=== PATIENT | male | born 1985 | race Caucasian/White ===

== ENCOUNTER 2023-02-22 15:40 | Emergency (ER) | payer OTHER, SELFPAY ==
[2023-02-22 15:53] VITALS: BP 139/91; PULSE 79; RESP 16; TEMP 36.2; O2SAT 98; BMI 23.1
--- NOTE | 2023-02-22 15:54 | ED.GENADULT ---
HPI - General Adult General Time Seen by Provider: 15:54 Date Seen: 02/22/23 Chief complaint: Abdominal Pain Stated complaint: Abdominal pain Time Seen by Provider: 02/22/23 15:54 Source: patient, RN notes reviewed and old records reviewed Mode of arrival: ambulatory Limitations: no limitations History of Present Illness HPI narrative: 37-year-old male who comes today with abdominal pain. Patient has about 4 days of upper abdominal pain. He had nausea couple days ago but that resolved. No vomiting. No diarrhea or black stools. Pain is little bit better yesterday and then worse again today. He was initially seen in clinic today were labs were done and he was sent to the emergency department for further evaluation. Pain is worse with movement. He has tried Tums, was given Pepcid and Gaviscon at the clinic with no improvement. Denies urinary symptoms, no radiation into the chest or back. Related Data Home Medications Medication Instructions Recorded Confirmed cabergoline 0.5 mg tablet 0.5 mg PO 02/22/23 dextroamphetamine-amphetamine 10 PO 02/22/23 mg tablet Allergies Allergy/AdvReac Type Severity Reaction Status Date / Time mirtazapine AdvReac Intermediate Rash Verified 02/22/23 16:01 [facility] Social History Smoking Status: Never smoker Second hand tobacco smoke exposure: No How often do you have a drink containing alcohol: monthly or less AUDIT-C Alcohol total score: 1 Non-prescribed substance use: denies use service: No Exam Narrative: Exam Narrative: General: Well-developed and well-nourished, no acute distress Head: Atraumatic and normocephalic Eyes: Pupils are equal reactive, extraocular motions intact, conjunctiva clear ENT: External nose and ears are normal, posterior pharynx without erythema or exudate Neck: No midline cervical tenderness, full spontaneous range of motion the neck, trachea midline, no adenopathy Heart: Regular rate and rhythm no murmurs or thrills Lungs: Clear to auscultation bilaterally without wheezes or crackles Abdomen: Soft, epigastric and mid abdominal tenderness, no right lower quadrant tenderness, nondistended with active bowel sounds Musculoskeletal: No tenderness, deformity, or edema Neurologic: Awake, alert, and oriented x3, no gross focal neurologic deficits, cranial nerves intact as tested Psych: Mood and affect are appropriate Skin: No rashes Const: Vital Signs, click to edit/add: Vital Signs - 24 hr 02/22/23 15:53 Temperature 97.2 F L Pulse Rate [Pulse Oximeter] 79 Respiratory Rate 16 Blood Pressure [Ri ght Upper Arm] 139/91 H Pulse Oximetry 98 Oxygen Delivery Ne thod Room Air Course Course Hospital Course: Patient seen examined, reviewed clinic records from earlier today, review labs there which showed a normal CBC with a white count of 6, normal basic panel, slight elevation in the total bilirubin at 1.9 with direct of 0.7, normal AST, ALT, alkaline phosphatase, normal lipase of 42. CRP and sed rate both negative. On exam, he does have epigastric and upper abdominal tenderness. Suspect this is from gastritis or enteritis, pancreatitis less likely. No right lower quadrant tenderness to suggest acute appendicitis, no right upper quadrant tenderness to suggest acute cholecystitis or biliary colic. CT scan is ordered. Reevaluation(s) Time of Reevaluation #1: 17:23 Reevaluation #1: CT scan independently interpreted by me does not demonstrate any acute intra-abdominal findings. Patient is stable for discharge and will be given Zofran and Bentyl for symptom management, can take ibuprofen as needed. Follow-up with primary care next week. Vital Signs Vital signs: Initial Vital Signs Temperature 97.2 F L 02/22/23 15:53 Temperature Source Temporal Artery Scan 02/22/23 15:53 Pulse Rate 79 02/22/23 15:53 Respiratory Rate 16 02/22/23 15:53 Blood Pressure 139/91 H 02/22/23 15:53 Blood Pressure Mean 107 H 02/22/23 15:53 Pulse Oximetry 98 02/22/23 15:53 Oxygen Delivery Method Room Air 02/22/23 15:53 Vital Signs Temperature 97.2 F L 02/22/23 15:53 Pulse Rate 79 02/22/23 15:53 Respiratory Rate 16 02/22/23 15:53 Blood Pressure 139/91 H 02/22/23 15:53 Pulse Oximetry 98 02/22/23 15:53 Oxygen Delivery Method Room Air 02/22/23 15:53 Temperature 97.2 F L 02/22/23 15:53 Pulse Rate 79 02/22/23 15:53 Respiratory Rate 16 02/22/23 15:53 Blood Pressure 139/91 H 02/22/23 15:53 Pulse Oximetry 98 02/22/23 15:53 Oxygen Delivery Method Room Air 02/22/23 15:53 Discharge Plan Discharge Prescriptions: No Action dextroamphetamine-amphetamine 10 mg tablet PO cabergoline 0.5 mg tablet 0.5 mg PO
--- NOTE | 2023-02-22 16:07 | CRLHL7_ITS ---
For Patients: As a result of the Century Cures Act, medical imaging exams and procedure reports are released immediately into your electronic medical record. You may view this report before your referring provider. If you have questions, please contact your health care provider. INDICATION: Upper abdominal pain. COMPARISON: None available. TECHNIQUE: CT examination of the abdomen and pelvis was performed with the uneventful intravenous administration of 98 cc of Isovue 370 while 3 mm thick axial sections were obtained from the lung bases through the pubic symphysis. Oral contrast was not administered. Please note that all CT scans at this facility use dose modulation, iterative reconstruction, and/or weight-based dosing when appropriate to reduce radiation dose to as low as reasonably achievable. FINDINGS: In the abdomen, the liver, spleen, pancreas, and adrenals are normal in appearance. The kidneys are normal in appearance. The gallbladder is normal in appearance. The abdominal aorta is normal in caliber with no sign of dilatation. There is no sign of retroperitoneal mass or adenopathy. The stomach, loops of small bowel, and colon in the abdomen are normal in appearance. In the pelvis, the appendix is normal in appearance with no sign of inflammatory process. The loops of small bowel, colon, and rectum in the pelvis are normal in appearance. The prostate is mildly enlarged and is otherwise normal in appearance. The urinary bladder is normal in appearance. There is no sign of pelvic or inguinal mass or adenopathy. There is no sign of free air or free fluid in the abdomen or pelvis. The lung bases are clear. The osseous structures are normal in appearance for the patient`s age. IMPRESSION: CT of the abdomen shows nothing to correlate with the history of upper abdominal pain. Normal appearance of the stomach, pancreas, loops of small bowel, and colon. Normal appearance of the kidneys and ureters. CT of the pelvis shows mild enlargement of the prostate. Please note that all CT scans at this facility use dose modulation, iterative reconstruction, and/or weight-based dosing when appropriate to reduce radiation dose to as low as reasonably achievable. Dictated by Adi Masterson MD @ 02/22/2023 5:20:01 PM (Electronically Signed)
--- NOTE | 2023-02-22 16:23 | ED.NURSE ---
Saline lock order cancelled. Order for IV already in place.
== END 2023-02-22 17:39 | disposition home or self-care (01) ==
PROVIDERS: Emergency Provider Family Medicine
DX: K52.9 Noninfective gastroenteritis and colitis, unspecified (principal)
CPT/HCPCS: 74177; 99283; 99284; Q9967